=== PATIENT | male | born 1940 | race Caucasian/White ===

== ENCOUNTER 2016-05-17 16:09 | Emergency (ER) | payer OTHER ==
[~2016-05-17] VITALS: Ht 167.6 cm; Wt 81.6 kg
[2016-05-17 21:35] VITALS: BP 141/75
== END 2016-05-17 21:35 | disposition home or self-care (01) ==
LOC: ED 16:09
DX: G89.29 Other chronic pain (principal); M54.5 Low back pain; E11.9 Type 2 diabetes mellitus without complications; I10 Essential (primary) hypertension; I25.10 Atherosclerotic heart disease of native coronary artery without angina pectoris; Z79.01 Long term (current) use of anticoagulants
CPT/HCPCS: 20552; J2001

== ENCOUNTER 2016-05-18 20:46 | Inpatient (IN) | payer OTHER ==
[~2016-05-18] VITALS: Ht 172.7 cm; Wt 85.7 kg
[2016-05-19] VITALS (10 sets, daily range): BP systolic 129–195; BP diastolic 64–80
--- NOTE | 2016-05-19 00:49 | NUR ---
RECEIVED 75 Y/O M FOR EVAL OF LOWER BACK PAIN X1 WEEK. PT WAS SEEN YESTERDAY FOR SAME COMPLAINT; STS ADMINISTERED LIDOCAINE INJECTION INEFFECTIVE, "I WAS REALLY DISAPPOINTED BY IT". DENIES FALL OR TRAUMA TO AREA. STS PAIN COMES AND GOES. PER PT, "I REALLY HOPE THEY KEEP ME OVERNIGHT TONIGHT, LET'S GET THIS THING FIGURED OUT". RESP E/U, NAD NOTED.
--- NOTE | 2016-05-19 01:00 | NUR ---
DR ARREDONDO AT BEDSIDE FOR MSE.
[2016-05-19 01:24] LABS: BASOPHIL % 0.3 % (0-2); PLATELET COUNT 163 x10^3mcL (130-400); RED CELL DISTRIBUTION WIDTH 14.1 % (11.5-14.5)
[2016-05-19 01:41] LABS: ALBUMIN 3.9 g/dL (3.4-5.0); ALKALINE PHOSPHATASE 58 U/L (46-116); ALT/SGPT 38 U/L (16-63); AST/SGOT 31 U/L (15-37); BILIRUBIN TOTAL 0.58 mg/dL (0.20-1.00); CARBON DIOXIDE 26.2 mmol/L (21-32); CHLORIDE SERUM 102 mmol/L (98-107); CREATININE SERUM 1.6 mg/dL (0.7-1.3); GLUCOSE SERUM 144 mg/dL (74-106); SODIUM SERUM 135 mmol/L (136-145); TOTAL PROTEIN, SERUM 7.1 g/dL (6.4-8.2)
--- NOTE | 2016-05-19 01:43 | NUR ---
MEDICATED PER ORDER. SEE EMAR.
[2016-05-19 01:44] LABS: POTASSIUM SERUM 5.8 mmol/L (3.5-5.1)
[2016-05-19] MEDS ORDERED: CLOPIDOGREL75 M1 PO (01:47)
[2016-05-19] MEDS ORDERED: LISINOPRIL10 MG PO (01:47)
[2016-05-19] MEDS ORDERED: HYDROCHLOROTH12.5 M2 PO (01:47)
[2016-05-19] MEDS ORDERED: LOV40I SQ (01:47)
[2016-05-19] MEDS ORDERED: ATORVASTATIN CA40 M1 PO (01:48)
[2016-05-19] MEDS ORDERED: AMITRIPTYLINE H25 MG PO (01:48)
[2016-05-19] MEDS ORDERED: COUMADIN5 MG PO (01:48)
[2016-05-19] MEDS ORDERED: DICLOFENAC SODI50 MG PO (01:48)
[2016-05-19] MEDS ORDERED: TERAZOSIN HCL10 MG PO (01:48)
[2016-05-19] MEDS ORDERED: CARVEDILOL12.5 M1 PO (01:49)
[2016-05-19] MEDS ORDERED: ASPIR 8181 MG PO (01:49)
[2016-05-19] MEDS ORDERED: ACETAMINOPHEN-H1 TA1 PO (01:49)
--- NOTE | 2016-05-19 02:06 | NUR ---
REPORT CALLED TO CALIXTO LI FOR CONTINUATION OF CARE.
--- NOTE | 2016-05-19 02:57 | NUR ---
PATIENT RECEIVED FROM ED VIA GUERNEY ASSISTED BY NURSE. NO DISTRESS NOTED. PATIENT C/O BACK PAIN ONLY WITH MOVEMENT. IV SITE TO LEFT HAND, PATENT AND INTACT. BED IN LOWEST POSITION. PATIENT ORIENTED TO ROOM AND CALL LIGHT. CALL LIGHT WITHIN REACH. WILL CONTINUE TO MONITOR.
[2016-05-19 03:40] LABS: FREE T4 1.21 ng/dL (0.76-1.46); FREE THYROXINE INDEX 3.1 ug/dL (1.4-4.5); T4(THYROXINE) 10.7 ug/dL (4.7-13.3)
[2016-05-19 03:42] LABS: T3 TOTAL 1.69 ng/mL
[2016-05-19 03:59] LABS: CHOLESTEROL/HDL RATIO 4.2
--- NOTE | 2016-05-19 05:20 | NUR ---
PATIENT RESTED SINCE ARRIVING ON UNIT. NO DISTRESS NOTED. NO C/O PAIN. SAFETY AND COMFORT MEASURES MAINTAINED. BED IN LOWEST POSITION. CALL LIGHT WITHIN REACH. WILL CONTINUE TO MONITOR AND ENDORSE TO DAY SHIFT NURSE.
[2016-05-19 07:07] LABS: CALCIUM 8.4 mg/dL (8.5-10.1); CARBON DIOXIDE 26.3 mmol/L (21-32); CHLORIDE SERUM 105 mmol/L (98-107); CREATININE SERUM 1.5 mg/dL (0.7-1.3); GLUCOSE SERUM 143 mg/dL (74-106); PHOSPHOROUS 2.9 mg/dL (2.5-4.9); SODIUM SERUM 135 mmol/L (136-145)
[2016-05-19 07:13] LABS: POTASSIUM SERUM 6.3 mmol/L (3.5-5.1)
--- NOTE | 2016-05-19 07:20 | NUR ---
RECEIVED PATIENT AWAKE AND ALERT IN BED, STATE NO PAIN WHEN NOT MOVING, NO ACUTE DISTRESS NOTED, IV INTACT, URINAL AT BEDSIDE, CALL LIGHT WITHIN REACH.
[2016-05-19 07:23] LABS: BASOPHIL % 0.4 % (0-2); PLATELET COUNT 146 x10^3mcL (130-400); RED CELL DISTRIBUTION WIDTH 13.7 % (11.5-14.5)
--- NOTE | 2016-05-19 07:41 | NUR ---
RECEIVED CALL FROM LAB K+ 6.3, CARLI ORDERED.
--- NOTE | 2016-05-19 07:45 | NUR ---
ASSISTED WITH BREAKFAST SET UP.
--- NOTE | 2016-05-19 10:05 | NUR ---
RECORDS RECEIVED FROM [facility], PLACED IN CHART.
--- NOTE | 2016-05-19 10:45 | NUR ---
PATIENT RESTING IN BED NO COMPLAINTS, PAIN IS OKAY WHEN PATIENT NOT MOVING. K-PAD OFFERED ORDER FOR PATIENT, BUT PATIENT REFUSED AT THIS MOMENT. ALL DUE MEDS GIVEN. ALL QUESTIONS ANSWERED. DR. COHEN SEEN PATIENT AT THIS TIME DISCUSS WITH PATIENT ON PAIN CONTROL AND POTASSIUM LEVEL DOWN.
--- NOTE | 2016-05-19 11:35 | NUR ---
PER DR. COHEN NO LOVENOX TO BE GIVEN, INR 2.4 AND PATIENT ON COUMADIN.
--- NOTE | 2016-05-19 12:20 | NUR ---
PATIENT RESTING IN BED NO COMPLAINTS, D50%W AND 10 UNITS REGULAR INSULIN, PLUS KAYEXALATED 15GM PO GIVEN ORDERED FOR K 6.3; ASSISTING REPOSITIONED UP FOR LUNCH. RT AT BEDSIDE TEACHING INCENTIVE SPIROMETRY. CALL LIGHT WITHIN REACH.
--- NOTE | 2016-05-19 13:30 | NUR ---
HEPLOCKED FOR XRAY.
--- NOTE | 2016-05-19 13:56 | NUR ---
BACK FROM XRAY.
--- NOTE | 2016-05-19 14:03 | NUR ---
USING ELECTRONIC DEVICE, NO DISTRESS NOTED.
--- NOTE | 2016-05-19 14:46 | NUR ---
EARLIER DR WOODSON IN TO SEE PATIENT.
--- NOTE | 2016-05-19 14:57 | NUR ---
Patient resting in bed no acute distress noted, denies pain, request not to be bother for an hour " want to sleep". Per patient voided only no bowel movement, call light within reach.
[2016-05-19 16:14] LABS: UA SPECIFIC GRAVITY 1.025 (1.005-1.035); microscopic required? YES; urine erythrocyte NEGATIVE (NEGATIVE)
--- NOTE | 2016-05-19 16:15 | NUR ---
URINE SEND TO LAB FOR UA/DRUG/LYTES/OSMOLARITY ORDERED.
[2016-05-19 16:27] LABS: AMPHETAMINE QUAL UR NONE DETECTED (NEG <=1000)
--- NOTE | 2016-05-19 17:27 | NUR ---
PATIENT RESTING WITH EYES CLOSED NO DISTRESS NOTED, COUMADIN 5MG PO AND ROBAXIN PO GIVEN, NEEDS ANTICIPATED. CALL LIGHT WITHIN REACH.
--- NOTE | 2016-05-19 18:51 | NUR ---
Inform Dr. Marti patient want med for gas, per MD will place an order.
--- NOTE | 2016-05-19 19:30 | NUR ---
RECEIVED Pt AAOX4 CALM AND COOPERATIVE WITH CARE. DENIES ANY CHEST PAIN. LUNG SOUNDS ARE CTA BILATERALLY. PULSE OX IS 96% ON ROOM AIR. ABD SOFT/ROUND WITH ACTIVE BOWEL SOUNDS X4 QUADS. REPORTS FEELING BLOATED BUT DENIES ANY PAIN, N/V/D. AWAITING FOR Pt TO HAVE A BOWEL MOVEMENT. VOIDS FREELY USING THE URINAL. IV SITE IS PATENT. DENIES ANY PAIN TO HIS BACK AT THIS TIME. RADIAL AND PEDAL PULSES ARE PRESENT. MOVES ALL EXTREMITIES, NO EDEMA NOTED. SCD'S IN PLACE. RE-ORIENTED TO ROOM AND CALL LIGHT SYSTEM. POC DISCUSSED WITH Pt. WILL CONTINUE TO MONITOR.
--- NOTE | 2016-05-19 21:00 | NUR ---
REFUSES TO USE THE K-PAD. WILL CONTINUE TO MONITOR.
--- NOTE | 2016-05-19 22:20 | NUR ---
DR. ORDONEZ NOTIFIED THAT Pt IS HAVING A BOWEL MOVEMENT.
--- NOTE | 2016-05-19 23:14 | NUR ---
NEW IV STARTED TO RIGHT HAND. TOLERATED WELL.
--- NOTE | 2016-05-20 00:01 | NUR ---
MADE AWARE OF LATEST B/P 178/72 HR 71. ASKED TO REVISE IV FLUIDS RATE. Pt JUST HAD BLOOD WORK DRAWN, NEW IV SITE STARTED. DENIES ANY BACK PAIN AND MEDICATED WITH ROBAXIN PO ORDERED.
[2016-05-20 00:34] LABS: CALCIUM 8.6 mg/dL (8.5-10.1); CARBON DIOXIDE 28.4 mmol/L (21-32); CHLORIDE SERUM 106 mmol/L (98-107); CREATININE SERUM 1.4 mg/dL (0.7-1.3); GLUCOSE SERUM 155 mg/dL (74-106); POTASSIUM SERUM 4.8 mmol/L (3.5-5.1); SODIUM SERUM 141 mmol/L (136-145)
--- NOTE | 2016-05-20 01:18 | NUR ---
Pt RESTING QUIETLY. WILL CONTINUE TO MONITOR.
--- NOTE | 2016-05-20 05:05 | NUR ---
Pt HAD A TOTAL OF X2 BOWEL MOVEMENTS AND VOIDED FREELY USING THE URINAL. POTASSIUM IS 4.8 AT THIS TIME. NO FURTHER C/O BACK PAIN, STATES "THE MUSCLE RELAXERS HAVE BEEN REALLY WORKING". CONTINUES TO REST QUIETLY. IV SITE PATENT. SAFETY AND COMFORT MEASURES REMAIN IN PLACE. WILL CONTINUE TO MONITOR.
[2016-05-20 05:59] VITALS: BP 136/53
[2016-05-20 06:33] LABS: BASOPHIL % 0.3 % (0-2); PLATELET COUNT 132 x10^3mcL (130-400); RED CELL DISTRIBUTION WIDTH 13.9 % (11.5-14.5)
[2016-05-20 07:00] LABS: CALCIUM 8.2 mg/dL (8.5-10.1); CARBON DIOXIDE 26.9 mmol/L (21-32); CHLORIDE SERUM 106 mmol/L (98-107); CREATININE SERUM 1.3 mg/dL (0.7-1.3); GLUCOSE SERUM 129 mg/dL (74-106); MAGNESIUM 2.2 mg/dL (1.8-2.4); PHOSPHOROUS 3.2 mg/dL (2.5-4.9); POTASSIUM SERUM 4.7 mmol/L (3.5-5.1); SODIUM SERUM 140 mmol/L (136-145)
--- NOTE | 2016-05-20 07:00 | NUR ---
I HAVE REVIEWED THE DATA COLLECTION BY [employer] (NAME):MILLER WU ENTERED ON (DATE/TIME):05/19/16 7P-7A I CONCUR WITH THE DATA AND ANY EXCEPTIONS OR COMMENTS ARE LISTED BELOW:
--- NOTE | 2016-05-20 08:00 | NUR ---
RECEIVED PATIENT AT BED SIDE. PATIENT A/A/OX3. NO RESP DISTRESS ON RA. DENIED CHEST PAIN. STATED BACK PAIN RELIEVED AND ABLE TO WALK IN [address]. IV TO RH PATENT AND INTACT. TOLERATED DIET. SCD TO BLE. CALL LIGHT IN REACH.
--- NOTE | 2016-05-20 08:45 | NUR ---
DR. SILVA AND MEDICAL TEAM MADE MORNING ROUND. PLAN OF CARE DISCUSSED WITH PATIENT, INCLUDED WITH PHYSICAL THERAPY AND POSSIBLE D/C TO HOME. PATIENT AGREED WITH PLAN OF CARE.
[2016-05-20 08:50] VITALS: BP 166/54
[2016-05-20 13:32] VITALS: BP 141/63
--- NOTE | 2016-05-20 14:14 | NUR ---
PT NOTE [id number] Pt IS A 75 Y/O MALE ADMITTED DUE TO INTRACTABLE BACK PAIN. XRAY LS- NO ACUTE ABN; VENOUS DOPPLER- NO DVT BLE PMH: HTN, COPD, DM, DYSLIPIDEMIA, CAD, HERNIATED DISC L4 Pt LIVES W/FAMILY IN A 2-SH, BEDRM/SHOWER DOWNSTAIRS; WAS INDEP IN ADLs AND AMBULATION NO ASSISTIVE DEVICE, OCC USES FWW. DME: FWW, 4WW, SPC, SCOOTER. Pt WAS CLEARED FOR PT PER RN. Pt WAS SEEN AWAKE RESTING IN BED, AGREED TO PARTICIIPATE W/PT. S:DENIES PAIN AT THIS TIME, 0/10 O:BP AT REST 154/61, HR 71; SaO2 96% RA BED MOBILITY: INDEP TRANSFERS: SIT-STAND INDEP GAIT 460 FT NO DEVICE INDEP; GOOD SHAKA, STEADY GAIT NOTED; NO LOB OBSERVED. Pt WAS ASSISTED BTB, 2 SIDERAILS UP FOR SAFETY, CALL LIGHT AND TABLE IN REACH; RN NOTIFIED. A/P:UPON ASSESSMENT, Pt IS INDEPENDENT IN FUNCTIONAL MOBILITY AND AMBULATION NO ASSISTIVE DEVICE; NO PT SERVICES RECOMMENDED, ENDORSED TO NURSING FOR DAILY AMBULATION. [id number] PVE(2) SET-UP [id number], [id number], [id number], TUG SCORE=10sec
[2016-05-20 18:04] VITALS: BP 166/61
--- NOTE | 2016-05-20 18:46 | NUR ---
DENIED BACK PAIN. AMBULATED IN [address]. ENDORSED CARE TO [facility] NURSE.
--- NOTE | 2016-05-20 20:32 | NUR ---
Awake and verbally responsive. No resp.distress noted on room air. Denies pain at this time. Appears comfortable in bed. Ambulatory. Will cont.to monitor. Call light within reach.
[2016-05-20 21:23] VITALS: BP 152/61
--- NOTE | 2016-05-21 04:07 | NUR ---
Afebrile. Slept well. No SOB noted. Denies pain at this time.
[2016-05-21 05:22] VITALS: BP 139/57
[2016-05-21 06:05] LABS: BASOPHIL % 0.4 % (0-2); PLATELET COUNT 133 x10^3mcL (130-400); RED CELL DISTRIBUTION WIDTH 13.5 % (11.5-14.5)
[2016-05-21 06:30] LABS: CALCIUM 8.1 mg/dL (8.5-10.1); CARBON DIOXIDE 28.8 mmol/L (21-32); CHLORIDE SERUM 105 mmol/L (98-107); CREATININE SERUM 1.3 mg/dL (0.7-1.3); GLUCOSE SERUM 106 mg/dL (74-106); PHOSPHOROUS 3.6 mg/dL (2.5-4.9); SODIUM SERUM 138 mmol/L (136-145)
--- NOTE | 2016-05-21 08:00 | NUR ---
A/A/OX3. NO RESP DISTRESS ON RA. DENIED CHEST PAIN. RESTING IN BED NOW. ABLE TO BRP AND SELF AMBULATE WITH WALKER. NO C/O BACK PAIN NOW. IVHL'D TO R HAND. IV SITE CLEAN. FINISHED 100% OF [facility] DIET BREAKFAST. CALL LIGHT IN REACH. WALKER AT BED SIDE.
--- NOTE | 2016-05-21 09:04 | NUR ---
DR. SILVA AND MEDICAL TEAM MADE MORNING ROUND. PLAN OF CARE DISCUSSED WITH PATIENT, INCLUDED WITH CONSULTATION WITH DR. ANTONIO OR DR. WALKER FOR PAIN MANAGEMENT, AND POSSIBLE DISCHARGE TODAY OR TOMORROW. PATIENT AGREED WITH PLAN OF CARE.
[2016-05-21 09:39] VITALS: BP 117/72; BP 117/721
[2016-05-21] MEDS ORDERED: METHOCARBAMOL500 MG PO (09:55)
[2016-05-21] MEDS ORDERED: GLU5 PO (12:06)
[2016-05-21] MEDS ORDERED: COL100 PO (12:06)
[2016-05-21] MEDS ORDERED: APAP/HYDROCODON1 T13 PO (12:07)
--- NOTE | 2016-05-21 12:15 | NUR ---
DR. WOODSON AT BED SIDE AND GAVE OMT.
[2016-05-21 12:30] VITALS: BP 117/72
--- NOTE | 2016-05-21 14:14 | NUR ---
D/C TO HOME PER ORDER. INSTRUCTION GIVEN. IV D/C'D OVER NEEDLE CATHETER INTACT. AMBULATORY. CONDITION STABLE.
== END 2016-05-21 14:10 | disposition home or self-care (01) | DRG 551 ==
LOC: ED 20:46 → DU 05-19 01:41 → MU 05-19 01:41 → DU 05-19 02:23 → MU 05-20 09:47
PROVIDERS: Emergency Medicine; ADMIT Family Medicine
PROC: 7W0 Osteopathic, Anatomical Regions, Treatment (ICD-10-PCS; principal; 2016-05-20)
PROC: 7W0 Osteopathic, Anatomical Regions, Treatment (ICD-10-PCS; 2016-05-20)
PROC: 7W0 Osteopathic, Anatomical Regions, Treatment (ICD-10-PCS; 2016-05-20)
PROC: 7W0 Osteopathic, Anatomical Regions, Treatment (ICD-10-PCS; 2016-05-20)
PROC: 7W0 Osteopathic, Anatomical Regions, Treatment (ICD-10-PCS; 2016-05-20)
PROC: 7W05X1Z Osteopathic Treatment of Pelvis using Fascial Release (ICD-10-PCS; 2016-05-21)
PROC: 7W08X4Z Osteopathic Treatment of Rib Cage using Indirect Forces (ICD-10-PCS; 2016-05-21)
PROC: 7W0 Osteopathic, Anatomical Regions, Treatment (ICD-10-PCS; 2016-05-21)
PROC: 7W02X4Z Osteopathic Treatment of Thoracic Region using Indirect Forces (ICD-10-PCS; 2016-05-21)
DX: M51.9 Unspecified thoracic, thoracolumbar and lumbosacral intervertebral disc disorder (principal); N17.0 Acute kidney failure with tubular necrosis; D68.69 Other thrombophilia; E87.2 Acidosis; E11.52 Type 2 diabetes mellitus with diabetic peripheral angiopathy with gangrene; E11.65 Type 2 diabetes mellitus with hyperglycemia; E87.5 Hyperkalemia; J44.9 Chronic obstructive pulmonary disease, unspecified; M99.02 Segmental and somatic dysfunction of thoracic region; M99.08 Segmental and somatic dysfunction of rib cage; M99.03 Segmental and somatic dysfunction of lumbar region; M99.05 Segmental and somatic dysfunction of pelvic region; I25.10 Atherosclerotic heart disease of native coronary artery without angina pectoris; N40.0 Benign prostatic hyperplasia without lower urinary tract symptoms; I10 Essential (primary) hypertension; G89.29 Other chronic pain; Z79.82 Long term (current) use of aspirin; Z95.2 Presence of prosthetic heart valve; Z68.28 Body mass index [BMI] 28.0-28.9, adult; Z87.891 Personal history of nicotine dependence; Z79.01 Long term (current) use of anticoagulants; E02 Subclinical iodine-deficiency hypothyroidism
CPT/HCPCS: 36600; 80307; 82962; 83880; 84439; 94150; J0610; J2270; J2405; J3490; J7030; J7613; Q0092

== ENCOUNTER 2016-08-27 18:58 | Inpatient (IN) | payer OTHER ==
[~2016-08-27] VITALS: Ht 175.3 cm; Wt 86.7 kg
[~2016-08-27 18:58] MED LIST: ACETAMINOPHEN-H1 TA1 PO; AMITRIPTYLINE H25 MG PO; APAP/HYDROCODON1 T13 PO; ASPIR 8181 MG PO; ATORVASTATIN CA40 M1 PO; CARVEDILOL12.5 M1 PO; CLOPIDOGREL75 M1 PO; COL100 PO; COUMADIN5 MG PO; DICLOFENAC SODI50 MG PO; GLU5 PO; HYDROCHLOROTH12.5 M2 PO; LISINOPRIL10 MG PO; LOV40I SQ; METHOCARBAMOL500 MG PO; TERAZOSIN HCL10 MG PO
[2016-08-27 20:22] LABS: BASOPHIL % 0.3 % (0-2); PLATELET COUNT 139 x10^3mcL (130-400); RED CELL DISTRIBUTION WIDTH 14.3 % (11.5-14.5)
[2016-08-27 20:33] LABS: CALCIUM 8.6 mg/dL (8.5-10.1); CARBON DIOXIDE 23.2 mmol/L (21-32); CHLORIDE SERUM 103 mmol/L (98-107); CREATININE SERUM 1.3 mg/dL (0.7-1.3); GLUCOSE SERUM 103 mg/dL (74-106); POTASSIUM SERUM 4.2 mmol/L (3.5-5.1); SODIUM SERUM 137 mmol/L (136-145)
[2016-08-27 20:35] LABS: ALBUMIN 3.6 g/dL (3.4-5.0); ALKALINE PHOSPHATASE 81 U/L (46-116); ALT/SGPT 33 U/L (16-63); AST/SGOT 31 U/L (15-37); BILIRUBIN TOTAL 0.5 mg/dL (0.20-1.00); TOTAL PROTEIN, SERUM 6.7 g/dL (6.4-8.2)
[2016-08-27 20:44] LABS: AMPHETAMINE QUAL UR NONE DETECTED (NEG <=1000)
[2016-08-27 22:45] VITALS: BP 194/78
[2016-08-27 23:07] VITALS: BP 201/77
[2016-08-27 23:41] LABS: MAGNESIUM 1.8 mg/dL (1.8-2.4); PHOSPHOROUS 3.4 mg/dL (2.5-4.9)
[2016-08-27 23:44] LABS: T3 TOTAL 1.06 ng/mL
[2016-08-27 23:45] LABS: CHOLESTEROL/HDL RATIO 3.3
[2016-08-27 23:50] VITALS: BP 164/63
[2016-08-28 00:05] LABS: FREE T4 0.94 ng/dL (0.76-1.46); FREE THYROXINE INDEX 2.2 ug/dL (1.4-4.5); T4(THYROXINE) 6.7 ug/dL (4.7-13.3)
[2016-08-28 04:45] VITALS: BP 133/60
[2016-08-28 06:00] VITALS: BP 121/59
[2016-08-28 06:52] LABS: CALCIUM 8.2 mg/dL (8.5-10.1); CARBON DIOXIDE 23.3 mmol/L (21-32); CHLORIDE SERUM 107 mmol/L (98-107); CREATININE SERUM 1.4 mg/dL (0.7-1.3); GLUCOSE SERUM 117 mg/dL (74-106); POTASSIUM SERUM 4.2 mmol/L (3.5-5.1); SODIUM SERUM 140 mmol/L (136-145)
[2016-08-28 06:58] LABS: BASOPHIL % 0.4 % (0-2); PLATELET COUNT 133 x10^3mcL (130-400)
[2016-08-28 07:32] LABS: UA SPECIFIC GRAVITY 1.025 (1.005-1.035); microscopic required? YES; urine erythrocyte NEGATIVE (NEGATIVE)
[2016-08-28 09:55] VITALS: BP 155/64
[2016-08-28 13:33] VITALS: BP 144/44
[2016-08-28 16:40] VITALS: BP 152/62
[2016-08-28 16:49] VITALS: Ht 175.3 cm; Wt 86.7 kg
[2016-08-28 19:30] VITALS: BP 119/65
[2016-08-29 05:58] VITALS: BP 141/43
[2016-08-29 06:44] LABS: BASOPHIL % 0.4 % (0-2); PLATELET COUNT 142 x10^3mcL (130-400); RED CELL DISTRIBUTION WIDTH 14.1 % (11.5-14.5)
[2016-08-29 06:48] LABS: CALCIUM 8.7 mg/dL (8.5-10.1); CARBON DIOXIDE 24.6 mmol/L (21-32); CHLORIDE SERUM 105 mmol/L (98-107); CREATININE SERUM 1.5 mg/dL (0.7-1.3); GLUCOSE SERUM 106 mg/dL (74-106); POTASSIUM SERUM 4.4 mmol/L (3.5-5.1); SODIUM SERUM 138 mmol/L (136-145)
[2016-08-29 08:49] VITALS: BP 133/62
[2016-08-29 13:30] VITALS: BP 155/69
[2016-08-29] MEDS ORDERED: ALBUD HHN (16:21)
[2016-08-29] MEDS ORDERED: LOSARTAN POTASS25 M1 PO (16:23)
[2016-08-29] MEDS ORDERED: IPRATROPIUM BROM3 M2 HHN (16:24)
[2016-08-29 16:56] VITALS: BP 155/69
== END 2016-08-29 18:00 | disposition home or self-care (01) | DRG 206 ==
LOC: ED 18:58 → DU 21:48
PROVIDERS: Emergency Medicine; Student in an Organized Health Care Education/Training Program; ADMIT Family Medicine
DX: M94.0 Chondrocostal junction syndrome [Tietze] (principal); E11.65 Type 2 diabetes mellitus with hyperglycemia; E11.51 Type 2 diabetes mellitus with diabetic peripheral angiopathy without gangrene; I16.0 Hypertensive urgency; K21.9 Gastro-esophageal reflux disease without esophagitis; I25.10 Atherosclerotic heart disease of native coronary artery without angina pectoris; N40.0 Benign prostatic hyperplasia without lower urinary tract symptoms; E02 Subclinical iodine-deficiency hypothyroidism; G43.909 Migraine, unspecified, not intractable, without status migrainosus; J44.9 Chronic obstructive pulmonary disease, unspecified; Z79.82 Long term (current) use of aspirin; Z95.2 Presence of prosthetic heart valve; Z95.1 Presence of aortocoronary bypass graft; Z79.01 Long term (current) use of anticoagulants; Z87.891 Personal history of nicotine dependence; Z79.84 Long term (current) use of oral hypoglycemic drugs
CPT/HCPCS: 82962; 83880; 84439; C9113; J0360; J2270; J2405; J7030; J7613; Q0092